=== PATIENT | female | born 1995 | race Two or more races ===

== ENCOUNTER 2021-03-29 19:44 | Emergency (ER) | payer MEDICAID, OTHER ==
[~2021-03-29] VITALS: Ht 160 cm; Wt 71.7 kg
[2021-03-29 19:58] VITALS: BP 121/72
== END 2021-03-29 21:49 | disposition left against medical advice (07) ==
LOC: ER 19:48
DX: O26.891 Other specified pregnancy related conditions, first trimester (principal); N76.0 Acute vaginitis; Z3A.00 Weeks of gestation of pregnancy not specified; Z53.21 Procedure and treatment not carried out due to patient leaving prior to being seen by health care provider